=== PATIENT | male | born 1955 | race Caucasian/White ===

== ENCOUNTER → 2020-06-24 01:10 | Outpatient (CLI) | payer OTHER, SELFPAY ==
[2020-06-24 18:48] LABS: SARS-CoV-2 RNA PCR Negative
== END ==
PROVIDERS: PCP Internal Medicine; Visit Provider Surgery
DX: Z01.812 Encounter for preprocedural laboratory examination (principal); Z20.822 Contact with and (suspected) exposure to COVID-19
CPT/HCPCS: C9803; U0003; U0005

== ENCOUNTER 2020-06-27 01:14 | Day surgery (SDC) | payer OTHER, SELFPAY ==
[2020-06-18 12:57] VITALS: BMI 31.9
[2020-06-27] MEDS: LACTATED RINGERS 1,000 ML 150 ML IV CONT (06:26)
[2020-06-27 06:28] VITALS: BP 128/79; PULSE 64; RESP 16; TEMP 36.7; O2SAT 97; BMI 31.4
[2020-06-27 06:28] LABS: Glucose Point of Care 108 mg/dl (65-105)
--- NOTE | 2020-06-27 07:15 | WPDANESEPPF ---
Anes - Initial Pre Proc Eval Procedure: Operation Date: 06/27/20 07:30 Proposed Procedures p Screening Colonoscopy - Sea Barton DO Date/Time: 06/27/20 07:15 Surgeon: Sea Barton DO Pre Op Diagnosis: neoplasm screening Patient Data Age: 65 Gender: M Height: 5 ft 10 in Weight: 99.2 kg Last Vital Signs Temp 98.1 F 06/27/20 06:28 Pulse 64 06/27/20 06:28 Resp 16 06/27/20 06:28 BP 128/79 06/27/20 06:28 Pulse Ox 97 06/27/20 06:28 Allergies Allergy/AdvReac Type Severity Reaction Status Date / Time No Known Allergies Allergy Verified 06/27/20 06:14 Home Medications Medication Instructions Recorded Confirmed Type amlodipine 06/18/20 History aspirin 81 mg PO DAILY 06/18/20 06/27/20 History atenolol 100 mg PO DAILY 06/18/20 06/27/20 History atorvastatin 40 mg PO DAILY 06/18/20 06/27/20 History hydrochlorothiazide 25 mg PO DAILY 06/18/20 06/27/20 History lisinopril 10 mg PO DAILY 06/18/20 06/27/20 History metformin 500 mg PO BID 06/18/20 06/27/20 History haogyksl-fja-LA-lycopen-lutein 1 tablet PO DAILY 06/18/20 06/27/20 History [CertaVite Senior] sildenafil 100 mg PO PRN PRN 06/18/20 06/27/20 History Laboratory Tests 06/27/20 06:20 POC Capillary Glucose 108 mg/dl H mg/dl (65-105) Patient hx anesthesia problems: none Family hx anesthesia problems: none PMFSH Past Medical History Medical History (Updated 06/27/20 @ 07:12 by Juan David Mandujano MD) Diabetes 1.5, managed as type 2 Hyperlipidemia Hypertension Social History Social History Smoking status: Never smoker Alcohol intake: current Alcohol use details: socially Substance use: never Substance use type: does not use Living arrangements: with family Gender identity (if verbalized by the patient): Male Spiritual care concerns: No Anes - Eval Final PreProcedure Day of Procedure 06/27/20 07:15 Patient weight: obese Heart: regular rate and rhythm Lungs: clear to auscultation Airway: Mallampati scale class II Neurological: alert and oriented Last oral intake: >/= 8 hours ASA classification: III Emergent: no Anesthetic plan: proceed Anesthesia type and monitoring: general GIVS and standard monitoring Informed Consent: The patient's anesthetic plan and its attendant risks and benefits were discussed with the patient/family/POA. Questions were solicited and answers provided to the satisfaction of the patient/family/POA.
--- NOTE | 2020-06-27 07:30 | PM.IMHP ---
H&P: HPI History of Present Illness Date/Time: 06/27/20 07:30 Chief Complaint: Screening for colorectal cancer Narrative: 65-year-old man presents for colonoscopy. Last colonoscopy 10 years ago. He denies family history of colon cancer or any hematochezia or melena. Review of Systems Review of Systems: All systems reviewed & are unremarkable except as noted in HPI and below Constitutional: Constitutional: Denies chills, Denies fever(s), Denies headache(s) and Denies weight loss Eyes: Eyes: Denies change in vision ENT: Denies dizziness, Denies headache(s), Denies neck mass and Denies throat swelling Cardiovascular: Cardiovascular: Denies chest pain, Denies lightheadedness and Denies dyspnea Respiratory: Respiratory: Denies cough, Denies dyspnea and Denies wheezing Gastrointestinal: Gastrointestinal: Denies abdominal pain, Denies change in bowel habits, Denies nausea and Denies vomiting Genitourinary: Genitourinary: Denies hematuria and Denies dysuria Musculoskeletal: Musculoskeletal: Reports as per HPI Integumentary/Breasts: Skin/Breast: Reports as per HPI Neurologic: Denies dizziness and Denies headache(s) Allergic/Immunologic: Allergic/Immunologic: Denies throat swelling and Denies wheezing [facility] Past Medical History Medical History (Updated 06/27/20 @ 07:31 by Sea Barton DO) Diabetes 1.5, managed as type 2 Hyperlipidemia Hypertension Social History Social History Smoking status: Never smoker Alcohol intake: current Alcohol use details: socially Substance use: never Substance use type: does not use Living arrangements: with family Gender identity (if verbalized by the patient): Male Spiritual care concerns: No Meds Home Medications and Allergies Home Medications Medication Instructions Recorded Confirmed Type amlodipine 06/18/20 History aspirin 81 mg PO DAILY 06/18/20 06/27/20 History atenolol 100 mg PO DAILY 06/18/20 06/27/20 History atorvastatin 40 mg PO DAILY 06/18/20 06/27/20 History hydrochlorothiazide 25 mg PO DAILY 06/18/20 06/27/20 History lisinopril 10 mg PO DAILY 06/18/20 06/27/20 History metformin 500 mg PO BID 06/18/20 06/27/20 History yyxncdzh-vio-AU-lycopen-lutein 1 tablet PO DAILY 06/18/20 06/27/20 History [CertaVite Senior] sildenafil 100 mg PO PRN PRN 06/18/20 06/27/20 History Allergies Allergy/AdvReac Type Severity Reaction Status Date / Time No Known Allergies Allergy Verified 06/27/20 06:14 Vital Signs Vital Signs - 24 hr 06/27/20 06:28 Temperature 36.7 C Pulse Rate 64 Respiratory Rate 16 Blood Pressure 128/79 Pulse Oximetry 97 Exam Const: General: no acute distress and alert Orientation/consciousness: patient oriented x3 HENMT: Head: normocephalic and atraumatic Ears: hearing grossly normal bilaterally General nose exam: Normal nares present Mouth: Yes Normal oral and palatal mucosa present Eyes: Periorbital: periorbital findings normal Sclera: sclerae normal EOM: EOMs intact bilaterally Neck: Neck: normal visual inspection, no lymphadenopathy and trachea midline Chest: Chest palpation & inspection: normal inspection of the chest Resp: Effort & Inspection: normal respiratory effort Auscultation: clear to auscultation bilaterally Cardio: Jugular venous distension: no JVD Rate: regular rate Rhythm: regular rhythm Heart sounds: S1 normal heart sound present and S2 normal heart sound present Peripheral pulses: Peripheral pulses 2+ throughout GI: Inspection: normal to inspection GI Palp: Yes Soft to palpation, No Tenderness to palpation present (GI), No Guarding due to palpation present (GI) and No Rebound tenderness present Percussion: Yes normal to percussion Auscultation: normal bowel sounds : General: Yes no CVA tenderness Back/Spine/Pelvis: Back: no CVA tenderness Neuro: General: patient oriented x3, no focal motor deficits and CN's II-XI intact bilaterally Cognition (Neuro): normal co
[2020-06-27 07:58] VITALS: BP 120/70; PULSE 60; RESP 20; O2SAT 98
[2020-06-27 08:08] VITALS: BP 126/67; PULSE 58; RESP 20; O2SAT 100
[2020-06-27 08:18] VITALS: BP 130/71; PULSE 56; RESP 18; O2SAT 100
== END 2020-06-27 08:27 | disposition home or self-care (01) ==
PROVIDERS: PCP Internal Medicine; Visit Provider Surgery
PROC: 0DJD8ZZ Inspection of Lower Intestinal Tract, Via Natural or Artificial Opening Endoscopic (ICD-10-PCS; CPT 45378; principal; 2020-06-27 07:30)
DX: Z12.11 Encounter for screening for malignant neoplasm of colon (principal); D12.8 Benign neoplasm of rectum; K57.30 Diverticulosis of large intestine without perforation or abscess without bleeding; K64.8 Other hemorrhoids; E13.9 Other specified diabetes mellitus without complications; E78.5 Hyperlipidemia, unspecified; I10 Essential (primary) hypertension; Z79.84 Long term (current) use of oral hypoglycemic drugs; Z79.82 Long term (current) use of aspirin; E66.9 Obesity, unspecified; Z68.31 Body mass index [BMI] 31.0-31.9, adult
CPT/HCPCS: 45385; 82948; 88305; J2704; J7120

== ENCOUNTER 2020-12-13 16:33 | Observation (INO) | payer OTHER, SELFPAY ==
[2020-12-13] VITALS (12 sets, daily range): BP systolic 125–150; BP diastolic 70–98; PULSE 60–78; RESP 18–20; TEMP 35.8–36.6; O2SAT 97–100; BMI 30.7
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
--- NOTE | 2020-12-13 17:06 | ECG_ITS ---
Measurements Intervals [place] Rate: 69 P: 40 UT: 184 QRS: 1 QRSD: 92 T: 16 QT: 406 QTc: 438 Interpretive Statements SINUS RHYTHM BASELINE ARTIFACT- I, III, AVR, AVL, AVF, V1 NORMAL ECG Electronically Signed On 12-13-2020 20:26:31 CDT by Hernando Smyth D.O.
[2020-12-13] MEDS: KETOROLAC (*BKC) 60 MG/2 ML VIAL IM (17:26)
[2020-12-13 17:37] LABS: Basophils Absolute Auto 0.05 K/mm3 (0.00-0.10); Basophils Percent Auto 0.6 % (0.0-1.0); Eosinophils Absolute Auto 0.09 K/mm3 (0.02-0.50); Hematocrit 42.7 % (40.0-54.0); Hemoglobin 15.4 g/dL (14.0-18.0); Immature Granulocyte Absolute 0.02 K/mm3 (0.00-0.00); Immature Granulocyte Percent A 0.2 % (0.0-0.0); Lymphocytes Absolute Auto 1.75 K/mm3 (1.10-4.50); Lymphocytes Percent Auto 19.6 % (18.0-42.0); Mean Corpuscular HGB Conc 36.1 g/dL (32.0-36.0); Mean Corpuscular Volume 86.1 fL (78.0-102.0); Mean Platelet Volume 10.1 fl (8.7-11.0); Monocytes Absolute Auto 0.76 K/mm3 (0.10-0.90); Monocytes Percent Auto 8.5 % (2.0-11.0); Neutrophils Absolute Auto 6.3 K/mm3 (1.7-7.2); Neutrophils Percent Auto 70.1 % (50.0-70.0); Platelet Count Result 303 K/mm3 (150-420); Red Blood Count 4.96 M/mm3 (4.70-6.10); Red Cell Distribution Width 12.2 % (11.6-14.4); White Blood Count 8.9 K/mm3 (4.8-10.8)
[2020-12-13] MEDS: SODIUM CHLORIDE 0.9% IV 1,000 ML 150 ML IV CONT (17:50)
[2020-12-13 17:54] LABS: Alanine Aminotransferase 43 U/L (16-63); Albumin Level 3.8 g/dL (3.4-5.0); Alkaline Phosphatase 128 U/L (46-116); Anion Gap 12 mmol/L (8-16); Aspartate Amino Transferase 27 U/L (15-37); Bilirubin,Total 0.6 mg/dL (0.00-1.00); Blood Urea Nitrogen 20 mg/dL (7-18); Calcium 9.1 mg/dL (8.5-10.1); Carbon Dioxide 24 mmol/L (21-32); Chloride 100 mmol/L (98-108); Estimated CRCL calculation 77 ml/min; Estimated Glomerular Filt Rate > 60; Glucose 112 mg/dL (70-99); Osmolality Calculated 285 mOsm/kg (285-295); Potassium 3.5 mmol/L (3.5-5.1); Sodium 136 mmol/L (136-145); Total Protein 6.9 g/dL (6.4-8.2); Troponin I 6.2 ng/L (0.00-60.4)
[2020-12-13 17:56] LABS: Lactic Acid Reflex 1.5 mmol/L (0.4-2.0)
--- NOTE | 2020-12-13 19:14 | PC.NURSE ---
Pt c/o feeling very light-headed and dizzy, geovanny p lying on CT table and then getting up. Pt Head and Neck CT negative and order from ERP to remove c-collar received. Pt still c/o not feeling right and has dizziness. Noted VSS.
[2020-12-13] MEDS: MECLIZINE HCL 25 MG TABLET PO (19:39)
--- NOTE | 2020-12-13 19:41 | PC.NURSE ---
Pt walked in hallway, very shaky and c/o feeling light-headed. Pt assisted x1 back to bed and sitting at bedside, reports his legs now feel numb . Noted VSS and no orthostatic hypotension noted.
[2020-12-13 20:03] LABS: Glucose Point of Care 93 mg/dl (65-105)
--- NOTE | 2020-12-13 20:09 | PC.NURSE ---
patient feeling weak, is diabetic. glucose monitor 93, gave apple juice
[2020-12-13 20:36] LABS: NT Pro B Type Natriuretic Pept 85 pg/mL (0-125)
[2020-12-13] MEDS: ONDANSETRON INJ 4 MG/2 ML VIAL IV PUSH (21:00)
--- NOTE | 2020-12-13 21:04 | PC.NURSE ---
ERP spoke c pt and , pt still having severe dizziness and feeling lightheaded if sitting up or moving. When pt tried walking he became very nauseated and felt like he might pass out . Pt assisted back to bed and decision made to admit for 23 hr obs. Pt placed in gown, VSS at this time. Call placed to 2nd floor, pt to go to Rm 203.
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
--- NOTE | 2020-12-13 21:37 | PC.NURSE ---
Pt given food tray before taken to floor, ate approx 75% of dinner.
[2020-12-13] MEDS: atenoloL 50 MG TABLET 100 MG PO (22:27)
[2020-12-13] MEDS: SODIUM CHLORIDE 0.9% IV 1,000 ML 100 ML IV CONT (22:28)
[2020-12-13] MEDS: metFORMIN HCL XR 500 MG TAB.SR.24H 1000 MG PO (22:28)
--- NOTE | 2020-12-13 22:35 | PC.NURSE ---
Patient admitted to room 203 from the ER, is alert and oriented times 4, oriented to room and call light.
[2020-12-14] VITALS: PULSE 76
[2020-12-14 03:46] VITALS: PULSE 56
[2020-12-14 03:47] VITALS: BP 112/67; PULSE 56; RESP 20; TEMP 35.8; O2SAT 96
[2020-12-14 05:24] LABS: Basophils Absolute Auto 0.03 K/mm3 (0.00-0.10); Basophils Percent Auto 0.4 % (0.0-1.0); Eosinophils Absolute Auto 0.08 K/mm3 (0.02-0.50); Eosinophils Percent Auto 1.1 % (1.0-6.0); Hematocrit 40.1 % (40.0-54.0); Hemoglobin 13.7 g/dL (14.0-18.0); Immature Granulocyte Absolute 0.02 K/mm3 (0.00-0.00); Immature Granulocyte Percent A 0.3 % (0.0-0.0); Lymphocytes Absolute Auto 1.64 K/mm3 (1.10-4.50); Lymphocytes Percent Auto 23.1 % (18.0-42.0); Mean Corpuscular HGB Conc 34.2 g/dL (32.0-36.0); Mean Corpuscular Hemoglobin 30.1 pg (27.0-31.0); Mean Corpuscular Volume 88.1 fL (78.0-102.0); Mean Platelet Volume 9.7 fl (8.7-11.0); Monocytes Absolute Auto 0.67 K/mm3 (0.10-0.90); Monocytes Percent Auto 9.4 % (2.0-11.0); Neutrophils Absolute Auto 4.7 K/mm3 (1.7-7.2); Neutrophils Percent Auto 65.7 % (50.0-70.0); Platelet Count Result 223 K/mm3 (150-420); Red Blood Count 4.55 M/mm3 (4.70-6.10); Red Cell Distribution Width 12.2 % (11.6-14.4); White Blood Count 7.1 K/mm3 (4.8-10.8)
[2020-12-14 05:36] LABS: Add Urine Microscopic? NO; Appearance Urine Clear (Clear); Bilirubin Urine Negative (Negative); Blood Urine Negative (Negative); Color Urine Light Yellow (Yellow); Glucose Urine UA Negative (Negative); Ketones Urine Negative (Negative); Leukocyte Esterase Ur Negative (Negative); Nitrate Urine Negative (Negative); Protein Urine Negative (Negative); Urobilinogen Urine 0.2 mg/dL (0.2-1.0)
[2020-12-14 05:40] LABS: Alanine Aminotransferase 31 U/L (16-63); Albumin Level 3.1 g/dL (3.4-5.0); Alkaline Phosphatase 94 U/L (46-116); Anion Gap 10 mmol/L (8-16); Aspartate Amino Transferase 16 U/L (15-37); Bilirubin,Total 0.4 mg/dL (0.00-1.00); Blood Urea Nitrogen 20 mg/dL (7-18); Calcium 8.5 mg/dL (8.5-10.1); Carbon Dioxide 25 mmol/L (21-32); Chloride 107 mmol/L (98-108); Estimated CRCL calculation 77 ml/min; Estimated Glomerular Filt Rate > 60; Glucose 80 mg/dL (70-99); Osmolality Calculated 295 mOsm/kg (285-295); Potassium 3.9 mmol/L (3.5-5.1); Sodium 142 mmol/L (136-145); Total Protein 5.8 g/dL (6.4-8.2)
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
[2020-12-14 08:00] VITALS: BP 135/74; PULSE 59; RESP 14; TEMP 36.2; O2SAT 98
[2020-12-14 08:12] LABS: Glucose Point of Care 77 mg/dl (65-105)
--- NOTE | 2020-12-14 09:32 | PC.NURSE ---
Pt discharged. VS stable pt has no complaints. Discharge instructions given to pt. Medications reviewed, S&S to look for and action to take reviewed. Pt verbalized understanding. Pt taken to family car via WC by RN.
--- NOTE | 2020-12-16 15:32 | PC.NURSE ---
Pt states he received and understood his discharge instructions. Pt also states she was very good , referring to his discharge nurse.
== END 2020-12-14 08:40 | disposition home or self-care (01) ==
LOC: CHSED 21:15 → CHS2ND 21:16
PROVIDERS: Admitting Provider Emergency Medicine; Emergency Provider Emergency Medicine; PCP Internal Medicine; Visit Provider Emergency Medicine
DX: S06.0X0A Concussion without loss of consciousness, initial encounter (principal); R42 Dizziness and giddiness; E13.9 Other specified diabetes mellitus without complications; E78.5 Hyperlipidemia, unspecified; I10 Essential (primary) hypertension; V49.40XA Driver injured in collision with unspecified motor vehicles in traffic accident, initial encounter
CPT/HCPCS: 36415; 70450; 71250; 72125; 73030; 80053; 81003; 82948; 83605; 83880; 84484; 85025; 93005; 96361; 96372; 96374; 99285; A9270; G0378; J1885; J2405; J7030

== ENCOUNTER 2024-05-31 12:09 | Outpatient (CLI) | payer MEDICARE, OTHER, SELFPAY ==
[2024-05-31 12:26] LABS: Add Urine Microscopic? NO; Appearance Urine Clear (Clear); Bilirubin Urine Negative (Negative); Blood Urine Negative (Negative); Color Urine Yellow (Yellow); Glucose Urine UA Negative (Negative); Ketones Urine Negative (Negative); Leukocyte Esterase Ur Negative (Negative); Nitrate Urine Negative (Negative); Protein Urine Negative (Negative)
[2024-05-31 12:34] LABS: Creatinine Urine 177.61 mg/dL (40-278); MALB Creatinine Ratio 13.3 mg/g (0-30); Microalbumin Urine Random 23.7 mg/L
[2024-05-31 12:38] LABS: Hemoglobin A1C 5.7 % (<5.7)
[2024-05-31 13:02] LABS: Alanine Aminotransferase 35 U/L (16-63); Albumin Level 4.1 g/dL (3.4-5.0); Alkaline Phosphatase 132 U/L (46-116); Anion Gap 8 mmol/L (4-12); Aspartate Amino Transferase 20 U/L (15-37); Blood Urea Nitrogen 15 mg/dL (7-18); Calcium 9.2 mg/dL (8.5-10.1); Carbon Dioxide 29 mmol/L (21-32); Chloride 102 mmol/L (98-108); Cholesterol 178 mg/dL (0-200); Creatine Kinase 67 U/L (39-308); Estimated Glomerular Filt Rate > 60; Glucose 100 mg/dL (70-99); HDL Direct 52 mg/dL (40-60); LDL Cholesterol Calculated 96 mg/dL (<130); Osmolality Calculated 288 mOsm/kg (285-295); Potassium 4.6 mmol/L (3.5-5.1); Prostate Specific Antigen 1.3 ng/mL (< OR = 4.0); Sodium 139 mmol/L (136-145); Triglycerides 151 mg/dL (0-150)
--- OUTSIDE RECORDS SUMMARY | 2024-05-31 13:58 | XMS_ITS | Clinical Summary ---
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 Gender Identity Not on file Sexual Orientation Not on file Plan of Treatment Health Maintenance Due Date Last Done Comments Colorectal Cancer Screening Colonoscopy (10 Years) 1957 Hepatitis C 1975 DTaP, Tdap and Td Vaccines ( 1 - Tdap) 02/28/1976 Pneumococcal Vaccine: 50+ Ye ars (1 of 1 - PCV) 2007 Zoster Vaccines (1 of 2) 2007 COVID-19 Vaccine ( - 2023-2 5 season) 2023 RSV Immunization or 60+ Years (1 - 1-dose 75+ series) 02/28/2032 Meningococcal B Vaccine Aged Out No l onger eligible based on patient's age to complete this topic Meningococcal Vaccine Aged Out No chris silvia eligible based on patient's age to complete this topic RSV Immunizations Under 20 Months Aged Out No longer eligible based on patient's age to complete this topic
== END 2024-05-31 12:10 | disposition home or self-care (01) ==
PROVIDERS: PCP Internal Medicine; Visit Provider Internal Medicine
DX: E78.2 Mixed hyperlipidemia (principal); I10 Essential (primary) hypertension; E11.9 Type 2 diabetes mellitus without complications; Z12.5 Encounter for screening for malignant neoplasm of prostate
CPT/HCPCS: 36415; 80053; 80061; 81003; 82043; 82550; 83036; 84153; G0103

== ENCOUNTER 2024-08-23 12:29 | Emergency (ER) | payer MEDICARE, OTHER, SELFPAY ==
--- NOTE | ~2024-08-23 | XR_ITS ---
XR hand RT min 3V 08/23/2024 13:57 Indication: Post reduction right fourth finger Procedure: 3 views right hand Comparison: 08/23/2024 Findings: Interval reduction of right fourth finger at the proximal interphalangeal joint. There is a small avulsion fracture fragment adjacent to the joint. No other fracture or soft tissue abnormality . Mild polyarticular osteoarthritis. Impression: 1: Anatomic alignment of the right fourth proximal interphalangeal joint post reduction with small ad jacent avulsion fragment. Reviewed, dictated and finalized at location B. Impression: 1: Anatomic alignment of the right fourth proximal interphalangeal joint post r eduction with small adjacent avulsion fragment.
--- NOTE | ~2024-08-23 | XR_ITS ---
XR hand RT min 3V Ordering provider: Lio Charlton MD History: . dislocation of right ring finger . Comparison: None. FINDINGS: BONES: Medial dislocation seen in the proximal interphalangeal joint of the fourth finger. No defini te fractures seen. JOINT SPACES: Narrowing of the proximal and distal interphalangeal joints. Osteoarthritic changes of the first carpometacarpal joint. SOFT TISSUES: Normal. IMPRESSION: Medial dislocation of the proximal interphalangeal joint. No fractures seen. Reviewed, dictated and finalized at location A.
[2024-08-23 12:29] VITALS: BP 117/88; PULSE 71; RESP 18; TEMP 36.1; O2SAT 98
--- OUTSIDE RECORDS SUMMARY | 2024-08-23 12:39 | XMS_ITS | Clinical Summary ---
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
--- NOTE | 2024-08-23 12:58 | ED.UPPEXIN ---
HPI - Extremity Injury (Upper) General Chief Complaint: Extremity Injury, Upper Stated Complaint: right ring finger injury Time Seen by Provider: 08/23/24 12:38 Source: patient Mode of arrival: ambulatory Limitations: no limitations History of Present Illness HPI narrative: 69-year-old male with a history of hypertension, diabetes mellitus, dyslipidemia presents to the ED with -- dislocation of his right hand ring finger patient slipped and was falling . he fell on his right hand and dislocated his right proximal interphalangeal joint. complaint: injury to: right and finger ( index finger) Onset (ago): hour(s) ( 1 hour ago) Other Extremity Injury: Right: fingers Other injuries: none Handedness: right Place: outdoors Severity: severe Relieving factors: immobilization Exacerbating factors: movement of extremity Context: fall Associated symptoms: denies other symptoms Related Data Home Medications ?Medication ?Instructions ?Recorded ?Confirmed ?Last Taken ?Type amlodipine 10 mg tablet 10 mg PO DAILY 06/18/20 12/13/20 Unknown History aspirin 81 mg tablet,delayed 81 mg PO DAILY 06/18/20 12/13/20 06/26/20 History release atenolol 100 mg tablet 100 mg PO HS 06/18/20 12/13/20 06/27/20 05:00 History atorvastatin 40 mg tablet 40 mg PO DAILY 06/18/20 12/13/20 Unknown History hydrochlorothiazide 25 mg tablet 25 mg PO DAILY 06/18/20 12/13/20 Unknown History lisinopril 10 mg tablet 10 mg PO DAILY 06/18/20 12/13/20 Unknown History metformin 500 mg tablet,extended 1,000 mg PO HS 06/18/20 12/13/20 Unknown History release 24 hr ihgppqix-vug-kcedk acid 0.4 1 tablet PO DAILY 06/18/20 12/13/20 Unknown History mg-lycopene 300 mcg-lutein 250 mcg tablet (CertaVite Senior) sildenafil 100 mg tablet 100 mg PO PRN PRN Erectile 06/18/20 12/13/20 Unknown History Dysfunction Allergies Allergy/AdvReac Type Severity Reaction Status Date / Time No Known Allergies Allergy Verified 08/23/24 12:40 Review of Systems Review of Systems: All systems reviewed & are unremarkable except as noted in HPI and below PMFSH Past Medical History Medical History Concussion Hypertension Diabetes 1.5, managed as type 2 Hyperlipidemia Social History Social History Smoking status: Never smoker Second hand tobacco smoke exposure: No Alcohol intake: never Alcohol use details: socially Substance use: never Substance use type: does not use Living arrangements: with family Gender identity (if verbalized by the patient): Male Spiritual care concerns: No Exam Narrative: vitals are stable. Const: General: no acute distress Nutritional Appearance: well nourished Orientation/consciousness: patient oriented x3 Limitations: no limitations HENMT: Head: normal to inspection Ears: external ears normal Face/Nose/Sinus: Normal external nose present Face and sinus: normal facial exam Mouth: Yes Normal oral and palatal mucosa present Eyes: Conjunctivae: conjunctivae normal Pupils: Equal, round and reactive pupils present EOM: EOMs intact bilaterally Direct Ophthalmoscopy: no photophobia Neck: Neck: normal visual inspection and no lymphadenopathy Chest: Chest palpation & inspection: normal inspection of the chest Resp: Effort & Inspection: normal respiratory effort Auscultation: clear to auscultation bilaterally Cardio: Rate: regular rate Rhythm: regular rhythm GI: GI Palp: Yes Soft to palpation Auscultation: normal bowel sounds : General: Yes no CVA tenderness Other: Back/Spine/Pelvis: Back: no CVA tenderness Skin: General skin exam: normal color Rashes: no rashes Wounds: no wounds Neuro: General: patient oriented x3, moves all extremities, no meningeal signs, no focal motor deficits and CN's II-XI intact bilaterally Cranial nerves: Yes Nystagmus not present Speech: normal speech Gait exam (Neuro): Normal gait present Extrem: Other: Right hand index finger proximal interphalangeal joint dislocation. Psych: Mental Status: mental status grossly normal Affect: normal affect Attitude: cooperative Course Course Emergency Course: Accidental fall right index finger proximal interphalangeal joint dislocation Vital Signs Vital signs: Vital Signs Temperature 36.1 C L 08/23/24 12:29 Pulse Rate 71 08/23/24 12:29 Respiratory Rate 18 08/23/24 12:29 Blood Pressure 117/88 08/23/24 12:29 Pulse Oximetry 98 08/23/24 12:29 Oxygen Delivery Room Air 08/23/24 12:29 Temperature 36.1 C L 08/23/24 12:29 Pulse Rate 71 08/23/24 12:29 Respiratory Rate 18 08/23/24 12:29 Blood Pressure 117/88 08/23/24 12:29 Pulse Oximetry 98 08/23/24 12:29 Oxygen Delivery Room Air 08/23/24 12:29 Procedures Other Procedure Procedure 1: Other Procedure: finger dislocation-- right index finger proximal IP joint dislocation\ patient received 50 mcg of fentanyl IM . The finger was pulled and the dislocation was reduced. Post procedure the patient is able to move his right index finger. MDM - Extremity Injury (Upper) MDM Narrative Medical decision making narrative: right index finger PIP dislocation status post reduction. Alignment is normal. Small avulsion fracture. Differential Diagnosis Differential diagnosis: Likely finger sprain Lab Data Attestation: I reviewed the patient's lab results. Discharge Plan Discharge Clinical Impression: Dislocation of finger, interphalangeal joint Qualifiers: Encounter type: initial encounter Qualified Code(s): S63.279A - Dislocation of unspecified interphalangeal joint of unspecified finger, initial encounter Patient Disposition: Home Condition: Stable Instructions: Antibiotic Form, Closed Reduction (ED), Finger Dislocation (ED) Patient Language: Vietnamese Prescriptions: No Action cyclobenzaprine 5 mg tablet 5 mg PO TID PRN (Reason: muscle spasm) Qty: 30 0RF ibuprofen 800 mg tablet 800 mg PO Q6H PRN (Reason: pain) Qty: 30 0RF atorvastatin 40 mg tablet 40 mg PO DAILY atenolol 100 mg tablet 100 mg PO HS aspirin 81 mg tablet,delayed release (DR/EC) 81 mg PO DAILY sildenafil 100 mg tablet 100 mg PO PRN PRN (Reason: Erectile Dysfunction) amlodipine 10 mg tablet 10 mg PO DAILY lisinopril 10 mg tablet 10 mg PO DAILY hydrochlorothiazide 25 mg tablet 25 mg PO DAILY metformin 500 mg tablet extended release 24 hr 1,000 mg PO HS CertaVite Senior 0.4-300-250 mg-mcg-mcg tablet 1 tablet PO DAILY Follow-up/Referrals: Lisa Colón MD [Primary Care Provider] - Time of Disposition: 14:11
--- OUTSIDE RECORDS SUMMARY | 2024-08-23 13:15 | XMS_ITS | Clinical Summary ---
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
[2024-08-23] MEDS: fentaNYL CITRATE INJ (*CRX) 100 MCG/2 ML VIAL 50 MCG IM (13:26)
--- NOTE | 2024-08-23 14:20 | PC.NURSE ---
+PMS POST SPLINT APPLICATION.
[2024-08-23 14:25] VITALS: BP 99/88; PULSE 68; RESP 18; TEMP 36.6; O2SAT 99
== END 2024-08-23 14:25 | disposition home or self-care (01) ==
PROVIDERS: Emergency Provider Internal Medicine Critical Care Medicine; PCP Internal Medicine
DX: S63.270A Dislocation of unspecified interphalangeal joint of right index finger, initial encounter (principal); I10 Essential (primary) hypertension; E11.9 Type 2 diabetes mellitus without complications; E78.5 Hyperlipidemia, unspecified; W01.0XXA Fall on same level from slipping, tripping and stumbling without subsequent striking against object, initial encounter
CPT/HCPCS: 26770; 73130; 99285; J3010

== ENCOUNTER 2024-12-15 11:42 | Outpatient (CLI) | payer MEDICARE, SELFPAY ==
[2024-12-15 11:56] LABS: Add Urine Microscopic? NO; Appearance Urine Clear (Clear); Glucose Urine UA Negative (Negative); Hematocrit 43.5 % (37.0-46.0); Hemoglobin 14.8 g/dL (12.4-15.3); Leukocyte Esterase Ur Negative (Negative); Mean Corpuscular HGB Conc 34.0 g/dL (32-36); Mean Corpuscular Hemoglobin 29.8 pg (27.0-31.0); Mean Corpuscular Volume 87.7 fL (78.0-102.0); Nitrate Urine Negative (Negative); Platelet Count Result 308 K/mm3 (150-420); Red Blood Count 4.96 M/mm3 (4.70-6.10); Specific Grav Ur 1.025 (1.010-1.020); White Blood Count 6.8 K/mm3 (4.8-10.8)
--- OUTSIDE RECORDS SUMMARY | 2024-12-15 12:18 | XMS_ITS | Clinical Summary ---
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 Gender Identity Not on file Sexual Orientation Not on file Plan of Treatment Health Maintenance Due Date Last Done Comments Colorectal Cancer Screening Colonoscopy (10 Years) 1957 Hepatitis C 1975 DTaP, Tdap and Td Vaccines ( 1 - Tdap) 02/28/1976 Pneumococcal Vaccine: 50+ Ye ars (1 of 1 - PCV) 2007 Zoster Vaccines (1 of 2) 2007 COVID-19 Vaccine ( - 2024-2 6 season) 2024 Influenza Adult (#1) 2024 RSV Immunization or 60+ Years (1 - 1-dose 75+ series) 02/28/2032 Hepatitis A Vaccines Aged Out No long er eligible based on patient's age to complete this topic Meningococcal B Vaccine Aged Out No l onger eligible based on patient's age to complete this topic Meningococcal Vaccine Aged Out No chris silvia eligible based on patient's age to complete this topic RSV Immunizations Under 20 Months Aged Out No longer eligible based on patient's age to complete this topic
[2024-12-15 12:22] LABS: Hemoglobin A1C 5.5 % (<5.7)
[2024-12-15 12:24] LABS: Alanine Aminotransferase 25 U/L (6-50); Albumin Level 4.6 g/dL (3.5-5.1); Alkaline Phosphatase 112 U/L (38-126); Anion Gap 8 mmol/L (4-12); Aspartate Amino Transferase 31 U/L (17-59); Bilirubin,Total 1.9 mg/dL (0.2-1.3); Blood Urea Nitrogen 20 mg/dL (9-20); Calcium 9.3 mg/dL (8.4-10.2); Carbon Dioxide 26 mmol/L (22-30); Chloride 104 mmol/L (98-107); Cholesterol 192 mg/dL (0-200); Creatine Kinase 62 U/L (55-170); Estimated Glomerular Filt Rate > 60; Glucose 103 mg/dL (65-110); HDL Direct 53 mg/dL; Osmolality Calculated 288 mOsm/kg (285-295); Potassium 4.6 mmol/L (3.4-5.0); Sodium 138 mmol/L (137-145); Total Protein 6.8 g/dL (6.3-8.2); Triglycerides 176 mg/dL (<150)
[2024-12-15 12:40] LABS: Free T4 Free Thyroxine 1.46 ng/dL (0.78-2.19)
[2024-12-15 12:41] LABS: Free T3 3.93 pg/mL (2.18-3.98)
[2024-12-15 12:54] LABS: Thyroid Stimulating Hormone 2.010 uIU/mL (0.465-4.680)
== END 2024-12-15 11:43 | disposition home or self-care (01) ==
LOC: CHSLAB 11:44
PROVIDERS: PCP Internal Medicine; Visit Provider Internal Medicine
DX: E11.9 Type 2 diabetes mellitus without complications (principal); I10 Essential (primary) hypertension; E78.2 Mixed hyperlipidemia
CPT/HCPCS: 36415; 80053; 80061; 81003; 82550; 83036; 84439; 84443; 84481; 85027